=== PATIENT | male | born 1975 | race Caucasian/White ===

== ENCOUNTER 2016-07-01 17:27 | Emergency (ER) | payer SELFPAY ==
[2016-07-01 17:41] VITALS: O2SAT 96
--- NOTE | 2016-07-01 19:47 | EDPHY ---
H & P Stated Complaint: lower back pain, started yesterday. Time Seen by Provider: 07/01/16 19:30 HPI/ROS: CHIEF COMPLAINT: Low back pain HISTORY OF PRESENT ILLNESS: Patient is a 40-year-old healthy man who is visiting from [place] for marathon training. He states that he is staying in a hotel in which the bed is too soft. He woke up 3 days ago with low back pain. It has improved mildly with ibuprofen and rest and stretching. He has had similar pain before. He is confident it is muscular. He has not had any trauma. He has not had a fever. No bowel or bladder abnormalities. No radiation of the pain. No tingling or numbness. He is ambulatory without difficulty. No immunocompromise REVIEW OF SYSTEMS: Constitutional: denies: chills, fever, recent illness, recent injury EENTM: denies: blurred vision, double vision, nose congestion Respiratory: denies: cough, shortness of breath Cardiac: denies: chest pain, irregular heart rate, lightheadedness, palpitations Gastrointestinal/Abdominal: denies: abdominal pain, diarrhea, nausea, vomiting, blood streaked stools Genitourinary: denies: dysuria, frequency, hematuria, pain Musculoskeletal: See HPI Skin: denies: lesions, rash, jaundice, bruising Neurological: denies: headache, numbness, paresthesia, tingling, dizziness, weakness Hematologic/Lymphatic: denies: blood clots, easy bleeding, easy bruising Immunologic/allergic: denies: HIV/AIDS, transplant EXAM: GENERAL: Well-appearing, well-nourished and in no acute distress. HEAD: Atraumatic, normocephalic. EYES: Pupils equal round and reactive to light, extraocular movements intact, sclera anicteric, conjunctiva are normal. ENT: TMs normal, nares patent, oropharynx clear without exudates. Moist mucous membranes. NECK: Normal range of motion, supple without lymphadenopathy or JVD. LUNGS: Breath sounds clear to auscultation bilaterally and equal. No wheezes rales or rhonchi. HEART: Regular rate and rhythm without murmurs, rubs or gallops. ABDOMEN: Soft, nontender, normoactive bowel sounds. No guarding, no rebound. No masses appreciated. BACK: Bilateral CVA pain, no tenderness, muscle contraction, no spinal tenderness or bony deformities. EXTREMITIES: Normal range of motion, no pitting or edema. No clubbing or cyanosis. NEUROLOGICAL: Cranial nerves II through XII grossly intact. Normal speech, normal gait. 5/5 strength, normal movement in all extremities, normal sensation PSYCH: Normal mood, normal affect. SKIN: Warm, dry, normal turgor, no visible rashes or lesions. Source: Patient Exam Limitations: No limitations - Personal History Current Tetanus Diphtheria and Acellular Pertussis (TDAP): Unsure - Medical/Surgical History Hx Asthma: No Hx Chronic Respiratory Disease: No Hx Diabetes: No Hx Cardiac Disease: No Hx Renal Disease: No Hx Cirrhosis: No Hx Alcoholism: No Hx HIV/AIDS: No Hx Splenectomy or Spleen Trauma: No Other PMH: Back pain. - Family History Significant Family History: No pertinent family hx - Social History Smoking Status: Never smoked Alcohol Use: Sober Drug Use: None Constitutional: Initial Vital Signs Temperature (C) 36.7 C 07/01/16 17:38 Heart Rate 68 07/01/16 17:38 Respiratory Rate 16 07/01/16 17:38 Blood Pressure 138/77 H 07/01/16 17:38 O2 Sat (%) 96 07/01/16 17:38 O2 Delivery Mode Room Air Allergies/Adverse Reactions: No Known Allergies Allergy (Unverified 07/01/16 17:41) Home Medications: Medication Instructions Recorded Lidocaine 5% [Lidoderm 5% Patch 1 ea TD DAILY #7 patch 07/01/16 (*)] Medical Decision Making ED Course/Re-evaluation: We discussed options decides narcotics and muscle relaxants. Will start the patient on a lighted derm patch and encouraged mobilization and continued massage and heat packs. Patient understands and agrees with this plan. He declines imaging. He does not have any significant red flags for spinal cord injury. Differential Diagnosis: Partial list of the Differential diagnosis considered include but were not limited to; low back strain, muscle spasm and although unlikely based on the history and physical exam, I also considered radiculopathy, cord syndrome, cauda equina, infection. I discussed these differential diagnoses and the plan with the patient as well as the usual and expected course. The patient understands that the diagnosis is provisional and that in medicine we are not always correct and that further workup is often warranted. Usual and customary warnings were given. All of the patient's questions were answered. The patient was instructed to return to the emergency department should the symptoms at all worsen or return, otherwise to followup with the physician as we discussed. Departure - Departure Disposition: Home, Routine, Self-Care Clinical Impression: Low back strain Qualifiers: Encounter type: initial encounter Qualified Code(s): S39.012A - Strain of muscle, fascia and tendon of lower back, initial encounter Condition: Fair Instructions: Low Back Strain (ED) Referrals: Colby Cain MD [Medical Doctor] - As per Instructions Prescriptions: Lidocaine 5% [Lidoderm 5% Patch (*)] 1 ea TD DAILY #7 patch
[2016-07-01] MEDS ORDERED: LIDOCAINE 5% 1 EA PATCH TD ONE (20:00)
[2016-07-01] MEDS ORDERED: LIDOCAINE 5% 1 EA PATCH TD SCH (20:00)
[2016-07-01 20:17] VITALS: BP 129/63; PULSE 67; RESP 12; TEMP 98.2
[2016-07-01] MEDS ORDERED: PATCH REMOVAL 1 EA PATCH TD SCH (21:00)
== END 2016-07-01 20:13 | disposition home or self-care (01) ==
DX: S39.012A Strain of muscle, fascia and tendon of lower back, initial encounter (principal); X58.XXXA Exposure to other specified factors, initial encounter; Y92.59 Other trade areas as the place of occurrence of the external cause